=== PATIENT | male | born 1990 | race Caucasian/White ===

== ENCOUNTER 2017-05-28 02:28 | Day surgery (SDC) | payer OTHER ==
[~2017-05-28] VITALS: Ht 190.5 cm; Wt 100.0 kg
[2017-05-28] VITALS (9 sets, daily range): BP systolic 108–139; BP diastolic 56–64
[2017-05-28] MEDS ORDERED: ONDANSETRON 4MG/2ML VIAL (J2405) IV ONE (03:15)
[2017-05-28 03:30] LABS: ADD MANUAL DIFFER YES; MEAN CORPUSCULAR HGB CONC 35.4 g/dl (32.0-36.5); MEAN CORPUSCULAR VOLUME 90.5 fl (80.0-96.0); PLATELET COUNT, AUTOMATED 148 k/mm3 (150-450); RED CELL DISTRIBUTION WIDTH 12.4 % (11.5-14.5); WHITE BLOOD COUNT 7.8 K/mm3 (4.0-10.0)
[2017-05-28] MEDS ORDERED: NS 1,000 ML IV ONE ×2 (03:30→05:30)
[2017-05-28] MEDS: MORPHINE 4 MG/ML 1ML SYRINGE IV PRN ×2 (03:35→04:16)
[2017-05-28] MEDS ORDERED: ACETAMINOPHEN TAB 650MG DOSE (2X325MG) PO ONE (03:45)
[2017-05-28 03:50] LABS: ALBUMIN 3.6 GM/DL (3.2-5.2); ALKALINE PHOSPHATASE 98 U/L (45-117); ALT/SGPT 28 U/L (12-78); ANION GAP 9 MEQ/L (8-16); AST/SGOT 23 U/L (15-37); BILIRUBIN,DIRECT 0.4 MG/DL (0.0-0.2); BILIRUBIN,TOTAL 1.3 MG/DL (0.2-1.0); BLOOD UREA NITROGEN 17 MG/DL (7-18); CALCIUM LEVEL 8.8 MG/DL (8.5-10.1); CARBON DIOXIDE LEVEL 28 MEQ/L (21-32); CHLORIDE LEVEL 100 MEQ/L (98-107); CREATININE FOR GFR 1.15 MG/DL (0.70-1.30); GLOMERULAR FILTRATION RATE > 60.0 (>60); GLUCOSE, FASTING 120 MG/DL (70-105); POTASSIUM SERUM 3.8 MEQ/L (3.5-5.1); SODIUM LEVEL 137 MEQ/L (136-145); TOTAL PROTEIN 8.1 GM/DL (6.4-8.2)
[2017-05-28] MEDS ORDERED: ISOVUE-370 76% 100ML VIAL (Q9967) As Ordered ONE (04:58)
[2017-05-28] MEDS ORDERED: KETOROLAC 30 MG/ML VIAL (J1885) IV ONE (05:15)
--- NOTE | 2017-05-28 05:40 | REPUSA ---
CLINICAL HISTORY: Abdominal pain. TECHNIQUE: Multiple axial, sagittal and coronal CT images were obtained through the abdomen and pelvi s after administration of oral and intravenous contrast material. Images were obtained before and aft er IV contrast administration. COMMENTS: Enlarged appendix measuring 1.5 cm in its largest that transverse dimension. Impacted appendicolith in the base of the appendix. Abnormal enhancement and thickening of the wall of the appendix with surrounding inflammatory fat str anding. No perforation or abscess formation. Mildly dilated small bowel loops in the pelvis adjacent to the enlarged appendix. Small amount of free fluid in the pelvis. Mild diffuse thickening of the wall of the bladder. The liver is of decreased attenuation without mass or defect. There is no intra or extrahepatic bilia ry ductal dilatation. The spleen is normal. The gallbladder is within normal limits. The pancreas is of normal contour and attenuation characteristics. There is no evidence of adrenal mass. 8.2 mm nonobstructing stone of the left kidney. Both kidneys demonstrate prompt and equal nephrograms. The kidneys are normal in size, shape and conf iguration. There is no evidence of renal or ureteral mass. No right renal or ureteral calculi are [place] ntified. There is no hydroureter or hydronephrosis. There is no bowel wall thickening. No evidence for small or large bowel obstruction. There is no evidence of intrinsic or extrinsic bladder mass. Images of the lung bases show no evidence of pleural or parenchymal mass. There are no pleural effusi ons. The bony structures are free of lytic or blastic lesions. Multilevel degenerative changes are seen in volving the thoracolumbar spine. Scattered calcifications are seen involving the aorta and major bran ches compatible with atherosclerosis. IMPRESSION: Enlarged appendix measuring 1.5 cm in its largest that transverse dimension. Impacted appendicolith in the base of the appendix. Abnormal enhancement and thickening of the wall of the appendix with surrounding inflammatory fat str anding. Acute appendicitis. No perforation or abscess formation. Mildly dilated small bowel loops in the pelvis adjacent to the enlarged appendix. Probably a reactive ileus. Small amount of free fluid in the pelvis. Mild diffuse thickening of the wall of the bladder. Nonobstructing left nephrolithiasis. Thank you for your kind referral of this patient.
[2017-05-28] MEDS ORDERED: PIPERACILLIN/TAZOBACTAM SOD 3.375 GM in D5W MINI-BAG PLUS 50 ML IV ONE (05:45)
[2017-05-28] MEDS ORDERED: ASPI1TAB PO (05:59)
[2017-05-28] MEDS ORDERED: BUPIVACAINE/EPIN 0.25% 30 ML VIAL As Ordered ONE (06:07)
[2017-05-28] MEDS ORDERED: MIDAZOLAM INJ 2 MG/2 ML VIAL (J2250) As Ordered ONE (06:22)
[2017-05-28] MEDS ORDERED: fentaNYL 250 MCG/5 ML INJECTION (J3010) As Ordered ONE (06:22)
[2017-05-28] MEDS ORDERED: PROPOFOL 200 MG/20 ML VIAL As Ordered ONE (06:54)
[2017-05-28] MEDS ORDERED: ROCURONIUM BROMIDE 50 MG/5 ML VIAL/SYRINGE As Ordered ONE (06:54)
[2017-05-28] MEDS ORDERED: SUCCINYLCHOLINE 100 MG/5 ML SYRINGE (J0330) As Ordered ONE (06:54)
[2017-05-28] MEDS ORDERED: LIDOCAINE 2% INJ 100 MG/5 ML SDV (FOR ANES.) As Ordered ONE (06:54)
[2017-05-28] MEDS ORDERED: KETOROLAC 60 MG/2 ML VIAL (J1885) As Ordered ONE (06:55)
[2017-05-28] MEDS ORDERED: ONDANSETRON 4MG/2ML VIAL (J2405) As Ordered ONE (06:55)
[2017-05-28] MEDS ORDERED: dexameTHASONE 4 MG/ML 1ML VIAL (J1100) As Ordered ONE (06:55)
[2017-05-28] MEDS ORDERED: GLYCOPYRROLATE INJ 0.2 MG/ML 2 ML VIAL As Ordered ONE (07:09)
[2017-05-28] MEDS ORDERED: NEOSTIGMINE 1MG/ML 5 ML SYRINGE (J2710) As Ordered ONE (07:09)
[2017-05-28] MEDS ORDERED: ONDANSETRON 4MG/2ML VIAL (J2405) IV PRN ×2 (08:00→09:15)
[2017-05-28] MEDS ORDERED: LR 1,000 ML IV SCH (08:00)
[2017-05-28] MEDS ORDERED: fentaNYL 100 MCG/2 ML INJECTION (J3010) IV PRN (08:00)
[2017-05-28] MEDS ORDERED: PERCOCET 5MG/325MG TAB PO PRN (08:00)
[2017-05-28] MEDS ORDERED: HYDROmorphone HCL 1 MG/ML SYRINGE (J1170) IV PRN (08:00)
[2017-05-28] MEDS ORDERED: MOM 30ML SUSPENSION UDC PO PRN (09:15)
[2017-05-28] MEDS ORDERED: KETOROLAC 30 MG/ML VIAL (J1885) IV PRN (09:15)
[2017-05-28] MEDS ORDERED: ACETAMINOPHEN TAB 650MG DOSE (2X325MG) PO PRN (09:15)
[2017-05-28] MEDS ORDERED: NORCO, ANEXSIA 5/325MG TABLET (HYDROcodone/ACETAMINOPHEN) PO PRN (09:15)
[2017-05-28] MEDS ORDERED: MORPHINE 2 MG/ML 1ML SYRINGE IV PRN (09:15)
[2017-05-28] MEDS: LR 1,000 ML IV SCH ×2 (09:35→17:21)
[2017-05-28] MEDS: PANTOPRAZOLE 40MG TAB (PROTONIX) PO SCH (09:35)
[2017-05-28] MEDS: SENOKOT S TAB PO SCH ×2 (09:35→21:33)
[2017-05-28] MEDS: PIPERACILLIN/TAZOBACTAM SOD 3.375 GM in D5W MINI-BAG PLUS 50 ML IV SCH ×2 (11:14→17:36)
--- NOTE | 2017-05-28 15:18 | HPE ---
DATE OF ADMISSION: 05/28/2017 CHIEF COMPLAINT: Right lower quadrant pain. HISTORY OF PRESENT ILLNESS: The patient is a 26-year-old male who presents with right lower quadrant abdominal pain that started on Thursday. It has gotten progressively worse throughout the week, associated with some fevers and some nausea. No change in bowel movements. He thought that it was all due to indigestion or an upset stomach. However, as the pain continued to progress, he came in to the emergency room (ER) last evening for evaluation. In the ER, he had a fever of 102 as well as signs of acute appendicitis on CT scan. Therefore, I was called to evaluate. Currently, his pain is controlled. He denies any current nausea, vomiting, fever, sweats, or chills. No recent trauma or travel. No recent illnesses. No previous surgical history to his abdomen. PAST MEDICAL HISTORY: Negative. PAST SURGICAL HISTORY: Negative. ALLERGIES: None. SOCIAL HISTORY: Denies drug, alcohol, or tobacco abuse. FAMILY HISTORY: Noncontributory. REVIEW OF SYSTEMS: Pertinent positives and negatives as stated in the history of present illness (HPI). PHYSICAL EXAMINATION: GENERAL: The patient is alert and oriented times three, in no acute distress. VITAL SIGNS: Temperature 101.9, pulse 59, respirations 16, blood pressure 106/55, pulse oximetry 98% on room air. HEENT: Pupils are equally round and react to light and accommodation. HEART: S1, S2, regular rate and rhythm. LUNGS: Clear to auscultation bilaterally. ABDOMEN: Soft, tender to palpation in the right lower quadrant, localized guarding. No generalized peritonitis. EXTREMITIES: No clubbing, cyanosis, or edema. LABORATORY DATA: White count 7.8, hemoglobin 16.9, platelets 148. Potassium 3.8, creatinine 1.15, lactic acid 0.84. IMAGING STUDIES: CT abdomen and pelvis shows an enlarged appendix up to 1.5 cm with an impacted appendicolith in the base of the appendix. There is abnormal enhancement and thickening of the wall of the appendix with surrounding inflammatory fat stranding. ASSESSMENT AND PLAN: The patient is a 26-year-old male with right lower quadrant abdominal pain, fevers, and likely acute appendicitis. RECOMMENDATIONS: Proceed with laparoscopic appendectomy, possible open. The risks and benefits of the procedure, not limited to but including, bleeding, infection, hernia formation, damage to surrounding structures, need for further surgery were discussed in detail with the patient. Informed consent was obtained and the procedure will be completed first thing in the morning. Postoperatively, he will be kept on IV antibiotics for 24 hours. As long as his fever goes away, he will be able to be discharged home with oral antibiotics.
--- NOTE | 2017-05-28 19:01 | RO ---
DATE OF PROCEDURE: 05/28/2017 PREOPERATIVE DIAGNOSIS: Acute appendicitis. POSTOPERATIVE DIAGNOSIS: Acute appendicitis. PROCEDURE: Laparoscopic appendectomy. SURGEON: Dr. Sequeira EXECUTIVE CONSULTANT: None. ANESTHESIA: General. ESTIMATED BLOOD LOSS: 5 COMPLICATIONS: None. INDICATIONS FOR PROCEDURE: The patient 26-year-old male presents with right lower quadrant abdominal pain. Signs and symptoms consistent with acute appendicitis. Recommendation to proceed with laparoscopic possible open appendectomy. Risks and benefits of the procedure not limited to but including bleeding, infection, hernia formation, damage to surrounding structures, need further surgery were discussed in detail with the patient. Informed consent was obtained procedure was planned. PROCEDURE: The patient brought to operating room one after sufficient sedation. The abdomen was sterilely prepped, draped. Next a time-out was done to confirm proper patient and proper procedure. Following that a 5 mm incision made in left upper quadrant. Veress needle was inserted and the abdomen was insufflated to 50 mmHg. Next, the Veress needle was removed. A 5 mm OptiView port was used in left lower quadrant to gain access to the abdomen. Once abdomen was entered I was able around and there was brown fluid in the right lower quadrant suspicious for a ruptured appendix. 8 mm port was placed infraumbilically in the midline, followed by another 5 mm port in the right lower quadrant. The appendix was identified and carefully adhesed away from the terminal ileum. I was able to elevate it up in the air. There is a clear perforation right in the center of the body of the appendix. The free fluid that was in there was all aspirated out. The appendix was then dissected free using Enseal. Once the base the appendix was reached it was ligated twice with PDS Endoloops. It was then amputated using Enseal and brought out through a 5 mm EndoCatch bag. After the appendix was removed the abdomen was examined one last time to confirm hemostasis. 19-[place] Ck drain was placed in right lower quadrant brought out through the right lower quadrant incision site. That was then sutured in place with #2-0 silk suture. The abdomen was then cleaned and dried. The abdomen was then desufflated. Skin incision closed with #4-0 Vicryl subcuticular sutures. The abdomen cleaned and dried. Steri-Strips, 4x4, and tape were applied thus ending procedure.
[2017-05-29] MEDS: PIPERACILLIN/TAZOBACTAM SOD 3.375 GM in D5W MINI-BAG PLUS 50 ML IV SCH ×3 (00:22→12:20)
[2017-05-29] MEDS: LR 1,000 ML IV SCH (01:00)
[2017-05-29 02:00] VITALS: BP 107/58
[2017-05-29 05:54] LABS: MEAN CORPUSCULAR HEMOGLOBIN 31.6 pg (27.0-33.0); MEAN CORPUSCULAR HGB CONC 33.9 g/dl (32.0-36.5); MEAN CORPUSCULAR VOLUME 93.4 fl (80.0-96.0); WHITE BLOOD COUNT 8.6 K/mm3 (4.0-10.0)
[2017-05-29 06:00] VITALS: BP 116/56
[2017-05-29 06:12] LABS: ANION GAP 10 MEQ/L (8-16); BLOOD UREA NITROGEN 15 MG/DL (7-18); CARBON DIOXIDE LEVEL 24 MEQ/L (21-32); CHLORIDE LEVEL 109 MEQ/L (98-107); CREATININE FOR GFR 0.83 MG/DL (0.70-1.30); GLOMERULAR FILTRATION RATE > 60.0 (>60); GLUCOSE, FASTING 132 MG/DL (70-105); POTASSIUM SERUM 4.1 MEQ/L (3.5-5.1); SODIUM LEVEL 143 MEQ/L (136-145)
[2017-05-29] MEDS ORDERED: SENN1TAB2 PO (08:21)
[2017-05-29] MEDS ORDERED: AUGM875T28 PO (08:21)
[2017-05-29] MEDS ORDERED: NORCOTAB PO (08:21)
[2017-05-29] MEDS: PANTOPRAZOLE 40MG TAB (PROTONIX) PO SCH (09:40)
[2017-05-29] MEDS: SENOKOT S TAB PO SCH (09:40)
[2017-05-29 10:00] VITALS: BP 124/73
--- NOTE | 2017-05-29 12:10 | DSES ---
DATE OF ADMISSION: 05/28/2017 DATE OF DISCHARGE: 05/29/17 ADMISSION DIAGNOSIS: Acute appendicitis. DISCHARGE DIAGNOSIS: Acute appendicitis. HOSPITAL COURSE: The patient is a 26-year-old male who presents with 4 day history of right lower quadrant pain. He was found have acute appendicitis on CT scan. Recommendation was to take him to the OR for appendectomy. He was brought back to the operating room urgently in the morning. Intraoperatively he had a ruptured appendix. This was washed out, removed and drain was left. Postoperatively he did well. No more fevers. Pain was instantly improved. No nausea or vomiting. He was able to ambulate in the halls, had good urine output and was tolerating diet and his pain was almost completely resolved. This morning again he is continuing to do very well. Abdomen soft. Incisions are clean and dry. Drain is serosanguineous output. No nausea or vomiting and tolerating diet. PLAN: Discharge home today with the drain. I will take it out for him in the office next Thursday. He will be sent home with pain pill, stool softener and an antibiotic and he has our phone number to call with any questions. MARY GRACE
== END 2017-05-29 14:30 | disposition home or self-care (01) ==
LOC: M ED 02:28 → M OROP 05:43 → M MSPAV 08:41 → M OROP 05-29 14:30
PROVIDERS: ATTEND Surgery
DX: K35.2 Acute appendicitis with generalized peritonitis (principal); R11.10 Vomiting, unspecified; R10.31 Right lower quadrant pain

== ENCOUNTER → 2020-07-20 | Outpatient (CLI) | payer MEDICAID ==
[~2020-07-20] MED LIST: ASPI81TA26 PO; AUGM875T28 PO; HYDR-3715 PO; SENN-53 PO
== END ==
LOC: M OUTALCOH 08:39
PROVIDERS: ATTEND Psychiatry & Neurology Addiction Medicine
DX: F12.20 Cannabis dependence, uncomplicated (principal)

== ENCOUNTER 2020-08-01 09:21 | Outpatient (RCR) | payer MEDICAID | END 2020-08-20 | LOC: M OUTALCOH 09:21 | PROVIDERS: ATTEND Psychiatry & Neurology Addiction Medicine | DX: F10.20 Alcohol dependence, uncomplicated (principal) ==

== ENCOUNTER 2024-02-06 22:45 | Inpatient (IN) | payer MEDICAID, OTHER, SELFPAY ==
[~2024-02-06] VITALS: Ht 182.9 cm; Wt 106.3 kg
[2024-02-06] MEDS: LORazepam 2 MG/ML 1ML VIAL IM ONE (23:17)
[2024-02-06] MEDS ORDERED: LORazepam 2 MG/ML 1ML VIAL IM STA (23:18)
[2024-02-06] MEDS: LORazepam 2 MG/ML 1ML VIAL IM STA (23:25)
[2024-02-06] MEDS: OLANZapine INTRAMUSCULAR 10MG VIAL IM ONE (23:40)
[2024-02-06] MEDS: MIDAZOLAM INJ 2MG/2ML VIAL IV PRN (23:47)
[2024-02-06] MEDS: NS 1,000 ML IV ONE (23:47)
[2024-02-06] MEDS: ETOMIDATE INJ 20MG/10ML VIAL IV ONE (23:55)
[2024-02-06] MEDS: ROCURONIUM BROMIDE 50MG/5ML VIAL IV ONE (23:55)
[2024-02-07] VITALS (34 sets, daily range): BP systolic 87–126; BP diastolic 50–72; TEMP 98.3–99.5; O2SAT 97–100
[2024-02-07] MEDS: propofoL 1,000 MG in IV 1 EA IV SCH ×2 (00:14→07:30)
[2024-02-07] MEDS ORDERED: ISOVUE-370 76% 100ML VIAL As Ordered ONE (00:17)
[2024-02-07 00:24] LABS: ABG BASE EXCESS -5.3 (-2.0-2.0); ABG HCO3 21.1 MMOL/L (22.0-26.0); ABG O2 SATURATION 98.4 % (95.0-99.0); ABG PARTIAL PRESSURE CO2 44.1 mmHg (35.0-45.0); ABG PARTIAL PRESSURE O2 147.6 mmHg (75.0-100.0); ABG STANDARD HCO3 20.2 MMOL/L. (22.0-26.0); ABG TOTAL CO2 22.5 MMOL/L (22.0-29.0); ABG pH (ARTERIAL) 7.298 UNITS (7.350-7.450)
[2024-02-07 00:45] LABS: HEMATOCRIT 42.8 % (42.0-52.0); HEMOGLOBIN 14.9 g/dl (13.5-17.5); MEAN CORPUSCULAR HGB CONC 34.8 g/dl (32.0-36.5); MEAN CORPUSCULAR VOLUME 91.8 fl (80.0-96.0); PLATELET COUNT, AUTOMATED 240 10^3/uL (150-450); RED BLOOD COUNT 4.66 10^6/uL (4.30-6.10)
[2024-02-07] MEDS: MIDAZOLAM 100MG/100ML-0.9%NACL 100 MG in IV 1 EA IV SCH (00:45)
[2024-02-07 01:19] LABS: ETHYL ALCOHOL (ETHANOL) 0.284 % (0.000-0.010)
[2024-02-07] MEDS: BOOSTRIX VACCINE (TETANUS/DIPHTH/ACEL. PERTUSSIS) 0.5ML SYR IM.IMMUN ONE (01:38)
[2024-02-07 01:53] LABS: LIPASE 28 U/L (12-53)
[2024-02-07 01:55] LABS: ALBUMIN 4.4 G/DL (3.2-5.2); ALKALINE PHOSPHATASE 84 U/L (46-116); ALT/SGPT 46 U/L (7.0-40); AST/SGOT 64 U/L (<34); BILIRUBIN,DIRECT 0.2 MG/DL (<0.4); BILIRUBIN,TOTAL 0.7 MG/DL (0.3-1.2); BLOOD UREA NITROGEN 19 MG/DL (9-23); CALCIUM LEVEL 9.1 MG/DL (8.5-10.1); CARBON DIOXIDE LEVEL 22 MMOL/L (20-31); CHLORIDE LEVEL 106 MMOL/L (98-107); CREATININE FOR GFR 1.06 MG/DL (0.70-1.30); GLOMERULAR FILTRATION RATE > 60.0 (>60); GLUCOSE, FASTING 110 MG/DL (60-100); MAGNESIUM LEVEL 2.4 MG/DL (1.8-2.4); POTASSIUM SERUM 4.1 MMOL/L (3.5-5.1); SODIUM LEVEL 140 MMOL/L (136-145); TOTAL PROTEIN 7.5 G/DL (5.7-8.2)
[2024-02-07] MEDS: MULTIVITAMIN -ADULT INJECTION 10 ML, THIAMINE INJection 100 MG, FOLIC ACID 1 MG in NS 1... IV ONE (02:42)
[2024-02-07 02:53] LABS: AMPHETAMINES LEVEL URINE NEGATIVE (NEGATIVE); BARBITURATES URINE NEGATIVE (NEGATIVE); COCAINE METABOLITE URINE NEGATIVE (NEGATIVE); METHADONE URINE NEGATIVE (NEGATIVE); OPIATES URINE NEGATIVE (NEGATIVE); PHENCYCLIDINE URINE NEGATIVE (NEGATIVE)
[2024-02-07 03:01] LABS: BENZODIAZEPINES URINE POSITIVE (NEGATIVE); CANNABINOIDS URINE POSITIVE (NEGATIVE)
[2024-02-07] MEDS ORDERED: MIDAZOLAM 100MG/100ML-0.9%NACL 100 MG in IV 1 EA IV SCH ×2 (04:00→12:15)
[2024-02-07 06:03] LABS: ABG BASE EXCESS -5.4 (-2.0-2.0); ABG HCO3 20.7 MMOL/L (22.0-26.0); ABG O2 SATURATION 98.1 % (95.0-99.0); ABG PARTIAL PRESSURE CO2 42.6 mmHg (35.0-45.0); ABG PARTIAL PRESSURE O2 132.2 mmHg (75.0-100.0); ABG pH (ARTERIAL) 7.304 UNITS (7.350-7.450)
[2024-02-07] MEDS: LR 1,000 ML IV SCH (06:38)
[2024-02-07 07:24] LABS: BLOOD UREA NITROGEN 16 MG/DL (9-23); CALCIUM LEVEL 7.5 MG/DL (8.5-10.1); CARBON DIOXIDE LEVEL 24 MMOL/L (20-31); CHLORIDE LEVEL 111 MMOL/L (98-107); CREATININE FOR GFR 0.89 MG/DL (0.70-1.30); GLOMERULAR FILTRATION RATE > 60.0 (>60); GLUCOSE, FASTING 88 MG/DL (60-100); SODIUM LEVEL 142 MMOL/L (136-145)
[2024-02-07] MEDS: PANTOPRAZOLE 40MG VIAL IV SCH (08:55)
[2024-02-07] MEDS ORDERED: THIAMINE 200MG 2ML VIAL IM SCH (09:00)
[2024-02-07] MEDS: THIAMINE 200MG 2ML VIAL IV SCH (09:03)
[2024-02-07 11:26] LABS: VENOUS BASE EXCESS -1.5 (-2.0-2.0); VENOUS HCO3 24.2 MMOL/L (23.0-27.0); VENOUS O2 SATURATION 98.7 % (60.0-80.0); VENOUS PARTIAL PRESSURE CO2 44.2 mmHg (38.0-50.0); VENOUS PARTIAL PRESSURE O2 154.7 mmHg (30.0-50.0); VENOUS PH 7.356 UNITS (7.330-7.430); VENOUS STANDARD HCO3 23.3 MMOL/L; VENOUS TOTAL CO2 25.5 MMOL/L (24.0-28.0)
[2024-02-07] MEDS: HEPARIN SOD (PORCINE) 5000UNITS/ML 1ML VIAL/SYRINGE SC SCH (14:00)
== END 2024-02-07 15:43 | disposition left against medical advice (07) | DRG 351 ==
LOC: M ED 22:45 → M ED INP 02-07 04:00 → M ICU 02-07 05:31
PROVIDERS: ADMIT Internal Medicine Pulmonary Disease; ATTEND Internal Medicine Pulmonary Disease
PROC: 0BH17EZ Insertion of Endotracheal Airway into Trachea, Via Natural or Artificial Opening (ICD-10-PCS; principal; 2024-02-06)
PROC: 5A1935Z Respiratory Ventilation, Less than 24 Consecutive Hours (ICD-10-PCS; 2024-02-06)
PROC: 2W3RXYZ Immobilization of Left Lower Leg using Other Device (ICD-10-PCS; 2024-02-07)
DX: S93.422A Sprain of deltoid ligament of left ankle, initial encounter (principal); F10.121 Alcohol abuse with intoxication delirium; Z78.1 Physical restraint status; S02.2XXA Fracture of nasal bones, initial encounter for closed fracture; S82.155A Nondisplaced fracture of left tibial tuberosity, initial encounter for closed fracture; V89.0XXA Person injured in unspecified motor-vehicle accident, nontraffic, initial encounter

== ENCOUNTER → 2024-10-14 | Outpatient (CLI) | payer MEDICAID | LOC: M OUTALCOH 07:54 | PROVIDERS: ATTEND Psychiatry & Neurology Psychiatry | DX: Z03.89 Encounter for observation for other suspected diseases and conditions ruled out (principal) ==